=== PATIENT | male | born 1990 | race Caucasian/White ===

== ENCOUNTER 2021-08-17 19:23 | Emergency (ER) | payer SELFPAY ==
[~2021-08-17] VITALS: Ht 180.3 cm; Wt 104.3 kg
[2021-08-17 19:29] VITALS: BP 198/136
== END 2021-08-17 23:31 | disposition left against medical advice (07) ==
LOC: ER 19:23 → EDBD 19:23 → ER 23:31
DX: R42 Dizziness and giddiness (principal); R11.2 Nausea with vomiting, unspecified; Z53.21 Procedure and treatment not carried out due to patient leaving prior to being seen by health care provider
CPT/HCPCS: 93005